=== PATIENT | male | born 1970 | race Caucasian/White ===

== ENCOUNTER 2016-12-20 19:33 | Emergency (ER) | payer SELFPAY ==
--- NOTE | 2016-12-20 19:36 | ED Physician Documentation ---
General Adult - HISTORIAN Historian: patient - HPI Stated Complaint: sob Chief Complaint: General Adult Onset: days ago (3) Timing: still present Severity: moderate Further Comments: yes (Pt is a 46 yo male with fever, sob x 3 days. Pt has hx COPD. No heart hx. Pt has had productive cough.) - ROS CONST: fever, chills, other (malaize) EYES/ENT: sore throat CVS/RESP: shortness of breath, cough GI/: none MS/SKIN/LYMPH: none - PAST HX Past History: COPD, hypertension, other (cancer) Allergies/Adverse Reactions: Allergies Allergy/AdvReac Type Severity Reaction Status Date / Time No Known Allergies Allergy Verified 12/20/16 19:45 Home Medications: Ambulatory Orders Medication Instructions Recorded Albuterol Sulfate [Ventolin] 2.5 mg NEB PRN PRN 12/20/16 - SOCIAL HX Smoking History: cigarettes - FAMILY HX Family History: No - REVIEWED ASSESSMENTS Nursing Assessment Reviewed: Yes Vitals Reviewed: Yes Progress - Progress Progress: Duoneb HFN Solu-medrol 80 mg IV Azithromycin 500 mg po x 1 in ER. 1 L NS IVF in ER. much improved Rx Prednisone 50 mg 1 po qd x 4 days. Rx Azithromycin 250 mg po qd x 4 days Rx Albuterol (90 mcg/spray) MDI. 2 puffs q 4-6 h prn. (or use home HFN instead ) - EKG/XRAY/CT EKG: rhythm (sinus tachycardia, IL=589; normal axis; normal IA interval.) XRAY: chest (Emphysema.) General Adult Physical Exam - PHYSICAL EXAM GENERAL APPEARANCE: moderate distress EENT: ENT inspection normal, pharynx normal NECK: normal inspection, supple RESPIRATORY: other (distant breath sounds) CVS: reg rate & rhythm, heart sounds normal ABDOMEN: soft, no organomegaly, normal bowel sounds BACK: normal inspection, no CVA tenderness SKIN: warm/dry, normal color EXTREMITIES: non-tender, normal range of motion, no evidence of injury NEURO: oriented X3 Discharge Clincal Impression: Bronchitis COPD (chronic obstructive pulmonary disease) Qualifiers: COPD type: COPD with acute exacerbation Qualified Code(s): J44.1 - Chronic obstructive pulmonary disease with (acute) exacerbation Referrals: Primary Doctor,No [Primary Care Provider] - Home Medications: Ambulatory Orders Albuterol Sulfate [Ventolin] 2.5 mg NEB PRN PRN 12/20/16 Condition: Good Disposition: 01 HOME, SELF-CARE Decision to Admit: NO Decision Time: 22:31
[2016-12-20] MEDS ORDERED: 0.9 % SODIUM CHLORIDE 1,000 ML IV ONE (19:46)
[2016-12-20 20:19] LABS: BASOPHILS % 0.8 (0.0-1.5); EOSINOPHILS % 0.7 % (0.0-6.8); LYMPHOCYTES # 1.3 # k/uL (0.6-4.0); MEAN CORPUSCULAR HEMOGLOBIN 30.2 pg (28.0-34.0); MONOCYTES # 0.7 # k/uL (0.0-0.9)
[2016-12-20 20:21] LABS: eGFR (African) > 60; eGFR (Non-African) > 60
[2016-12-20] MEDS ORDERED: Prednisolone Sod Phosphat 15 MG/5 ML 15ML BOTTLE PO ONE (20:36)
[2016-12-20] MEDS ORDERED: IPRATROPIUM/ALBUTEROL SULFATE 3 ML AMPUL.NEB NEB ONE (20:58)
[2016-12-20] MEDS ORDERED: methylPREDNISolone SOD SUCC 40 MG/ML VIAL IVP STA (20:58)
[2016-12-20] MEDS ORDERED: AZITHROMYCIN 250 MG TABLET PO ONE (22:34)
[2016-12-20 23:05] VITALS: BP 131/99
--- NOTE | 2016-12-21 06:07 | Diagnostic Imaging Report ---
Report Submission Date: Dec 20, 2016 8:23:44 PM [employer] INS[employer] Patient ~ Study Name: DARIN SHAW ~ Date: Dec 20, 2016 8:10:54 PM [employer] INSPECTOR ~ Modality Type: CR Gender: M ~ Description: CHEST : 72 ~ Institution: [facility] Physician: PAUL QURESHI ~ ~ ~ ~ Chest, AP portable History: Shortness of breath, dyspnea Findings: The lungs are hyperinflated and there is flattening of the diaphragms , consistent with emphysema. There is no infiltrate, effusion or pneumothorax. Heart size, mediastinum and pulmonary vascularity are normal. Impression: Emphysema. ~ Electronically signed on Dec 20, 2016 8:23:44 PM [employer] INSPECTOR by: Pierce JI
== END 2016-12-20 22:50 | disposition home or self-care (01) ==
LOC: ED 19:33
DX: J20.9 Acute bronchitis, unspecified (principal)
CPT/HCPCS: 71010; 80053; 82550; 83880; 84484; 85025; J2920; J7030; 87070; 87400; 87880; 99283; J1030; S1016